=== PATIENT | male | born 1955 | race Caucasian/White ===

== ENCOUNTER 2023-03-01 09:04 | Emergency (ER) | payer MEDICARE, SELFPAY ==
--- NOTE | ~2023-03-01 | CT_ITS ---
EXAMINATION: CT abdomen pelvis wo con DATE: 03/01/2023 10:14 INDICATION: Right flank pain, hematuria TECHNIQUE: Computed tomography (CT) of the abdomen and pelvis was performed without intravenous contr ast. Automated exposure control and iterative reconstruction technique were employed. Exam dose: 165 0.39 mGy-cm total exam DLP. COMPARISON: None. FINDINGS: The lung bases are clear of infiltrate or consolidation. Cardiomegaly. No pericardial or pl eural effusion. The gallbladder appears unremarkable. No bile duct or pancreatic duct dilatation. No hepatic, pancrea tic, splenic or adrenal space-occupying mass lesion. Bilateral renal cysts, measuring up to 6.5 cm on the left, 5.2 cm on the right. Approximately 8.5 mm proximal right ureteral calculus with moderate right hydronephrosis. There is py elosinus extravasation as well. No other urinary tract calculus. The urinary bladder is unremarkable. The prostate gland is unremarkable. Normal appendix. Mild colonic diverticulosis; no evidence of diverticulitis. No bowel obstruction, bowel wall thickeni ng, pneumatosis or intraperitoneal free air. There is atherosclerotic calcification but normal caliber of the abdominal aorta. No intraperitoneal or retroperitoneal or pelvic mass lesion or adenopathy or ascites. Bilateral fat-containing inguinal hernias. Degenerative changes of the thoracic and lumbar spine. No suspicious osteolytic or osteoblastic lesio ns are noted. IMPRESSION: Approximately 7 x 8.5 mm proximal right ureteral calculus with moderate right hydronephr osis, pyelosinus extravasation Bilateral renal cysts Diverticulosis of the colon; no evidence of diverticulitis Normal appendix Bilateral fat-containing inguinal hernias Reviewed, dictated and finalized at [facility]. Reviewed, dictated and finalized at location B. IMPRESSION: Approximately 7 x 8.5 mm proximal right ureteral calculus with mod erate right hydronephrosis, pyelosinus extravasation Bilateral renal cysts Diverticulosis of the colon; no evidence of diverticulitis Normal appendix Bilateral fat-containing inguinal hernias
[2023-03-01 09:05] VITALS: PULSE 74; RESP 20; TEMP 35.6; O2SAT 97
--- NOTE | 2023-03-01 09:14 | ED.MALEGU ---
HPI - Male Genitourinary General Chief complaint: Urogenital-Male Stated complaint: hematuria Time Seen by Provider: 03/01/23 09:14 Source: patient Mode of arrival: ambulatory Limitations: no limitations History of Present Illness HPI Narrative: 67-year-old male with morbid obesity, hypertension, CHF, atrial fibrillation on anticoagulation, chronic hematuria, BPH, negative cystoscopy many years ago, presents to the ER with -- hematuria- passing red tinged urine without any clots. -- right flank pain. No radiation of the pain. the patient is taking Bactrim DS for the past 3 days. No fever or chills. MD Complaint: dysuria and other ( Hematuria) Onset (ago): day(s) ( 2 days) Duration: intermittent Location: right flank Severity: mild Quality: aching Relieving factors: none Exacerbating factors: none Associated symptoms: Reports denies other symptoms Related Data Home Medications Medication Instructions Recorded Confirmed amlodipine 10 mg tablet 10 mg PO DAILY 03/01/23 03/01/23 carvedilol 25 mg tablet 25 mg PO BID 03/01/23 03/01/23 digoxin 125 mcg (0.125 mg) tablet 125 mcg PO DAILY 03/01/23 03/01/23 finasteride 5 mg tablet 5 mg PO DAILY 03/01/23 03/01/23 lisinopril 20 mg tablet 40 mg PO DAILY 03/01/23 03/01/23 potassium chloride 10 mEq 10 meq PO DAILY 03/01/23 03/01/23 tablet,extended release(part/cryst) (Klor-Con M) rivaroxaban 20 mg tablet (Xarelto) 20 mg PO DAILY 03/01/23 03/01/23 Allergies Allergy/AdvReac Type Severity Reaction Status Date / Time ciprofloxacin [From Cipro] AdvReac Diarrhea Verified 03/01/23 09:51 Review of Systems Review of Systems: All systems reviewed & are unremarkable except as noted in HPI and below Constitutional: Constitutional: Reports as per HPI and Reports no additional constitutional complaints Eyes: Eyes: Reports as per HPI and Reports no additional eye complaints ENT: Reports system reviewed and no additional complaints, except as documented and Reports as per HPI Cardiovascular: Cardiovascular: Reports as per HPI and Reports no additional cardiovascular complaints Respiratory: Respiratory: Reports as per HPI and Reports no additional respiratory complaints Gastrointestinal: Gastrointestinal: Reports as per HPI and Reports no additional gastrointestinal complaints Genitourinary: Genitourinary: Reports hematuria Comments: right flank pain Musculoskeletal: Musculoskeletal: Reports no additional musculoskeletal complaints Integumentary/Breasts: Skin/Breast: Reports system reviewed and no additional complaints, except as docu Neurologic: Reports system reviewed and no additional complaints, except as documented and Reports as per HPI Psychiatric: Psychiatric: Reports no additional psychiatric complaints and Reports as per HPI Endocrine: Endocrine: Reports no additional endocrine complaints and Reports as per HPI Hematologic/Lymphatic: Hematologic/Lymphatic: Reports no additional hematologic/lymphatic complaints and Reports as per HPI Allergic/Immunologic: Allergic/Immunologic: Reports no additional allergic/immunologic complaints and Reports as per HPI PMFSH Past Medical History Medical History (Updated 03/01/23 @ 10:37 by Donavon Hughes MD) Afib BPH (benign prostatic hyperplasia) CHF (congestive heart failure) Hypertension Normal cystoscopy Obesity Exam Const: General: no acute distress Nutritional Appearance: obese Limitations: no limitations HENMT: Head: normal to inspection Ears: TM's normal bilaterally Face/Nose/Sinus: Normal external nose present Face and sinus: normal facial exam Mouth: Yes Normal oral and palatal mucosa present Throat: posterior oropharynx normal Eyes: Conjunctivae: conjunctivae normal Pupils: Equal, round and reactive pupils present EOM: EOMs intact bilaterally Direct Ophthalmoscopy: no photophobia Neck: Neck: normal visual inspection, no lymphadenopathy and no meningeal signs Chest: Chest palpation &
[2023-03-01 09:41] LABS: Appearance Urine Slightly Cloudy (Clear); Bilirubin Urine Negative (Negative); Blood Urine 3+ (Negative); Glucose Urine UA Negative (Negative); Ketones Urine Trace (Negative); Leukocyte Esterase Ur Trace LEU/UL (Negative); Nitrate Urine Negative (Negative); Protein Urine 2+ (Negative)
[2023-03-01 09:47] LABS: Basophils Absolute Auto 0.04 K/mm3 (0.00-0.10); Basophils Percent Auto 0.4 % (0.0-1.0); Eosinophils Absolute Auto 0.02 K/mm3 (0.02-0.50); Eosinophils Percent Auto 0.2 % (1.0-6.0); Hematocrit 47.1 % (37.0-46.0); Immature Granulocyte Absolute 0.06 K/mm3 (0.00-0.00); Immature Granulocyte Percent A 0.5 % (0.0-0.0); Lymphocytes Absolute Auto 0.78 K/mm3 (1.10-4.50); Lymphocytes Percent Auto 7.1 % (18.0-42.0); Mean Corpuscular HGB Conc 31.8 g/dL (32.0-36.0); Mean Corpuscular Hemoglobin 27.8 pg (27.0-31.0); Mean Corpuscular Volume 87.2 fL (78.0-102.0); Mean Platelet Volume 9.7 fl (8.7-11.0); Monocytes Absolute Auto 0.66 K/mm3 (0.10-0.90); Neutrophils Absolute Auto 9.4 K/mm3 (1.7-7.2); Neutrophils Percent Auto 85.8 % (50.0-70.0); Platelet Count Result 272 K/mm3 (150-420); Red Cell Distribution Width 14.2 % (11.6-14.4)
[2023-03-01 09:47] LABS: Add Urine Microscopic? YES; Bacteria Urine 1+ /hpf; Color Urine Amber (Yellow); RBC Urine >75 /hpf (0-2); Squamous Epithelial Cell Urine Occasional /hpf (Few)
[2023-03-01 10:06] LABS: Alanine Aminotransferase 19 U/L (16-63); Alkaline Phosphatase 80 U/L (46-116); Anion Gap 9 mmol/L (8-16); Aspartate Amino Transferase 16 U/L (15-37); Bilirubin,Total 0.6 mg/dL (0.00-1.00); Blood Urea Nitrogen 14 mg/dL (7-18); Carbon Dioxide 26 mmol/L (21-32); Chloride 102 mmol/L (98-108); Creatine Kinase 43 U/L (39-308); Estimated CRCL calculation 83 ml/min; Estimated Glomerular Filt Rate 58; Glucose 144 mg/dL (70-99); Osmolality Calculated 287 mOsm/kg (285-295); Potassium 4.3 mmol/L (3.5-5.1); Sodium 137 mmol/L (136-145); Total Protein 7.4 g/dL (6.4-8.2)
[2023-03-01 10:07] LABS: Lipase 14 U/L (16-77)
[2023-03-01 10:11] LABS: Calcium 9.6 mg/dL (8.5-10.1)
[2023-03-01] MEDS: HYDROcodone/acetaminophen (*CRX) 5-325 MG TABLET 1 TAB PO (11:02)
[2023-03-01 11:03] VITALS: BP 176/95; PULSE 89; RESP 20; TEMP 37.1; O2SAT 94
== END 2023-03-01 11:07 | disposition home or self-care (01) ==
PROVIDERS: Emergency Provider Internal Medicine Critical Care Medicine; PCP Internal Medicine
DX: N20.0 Calculus of kidney (principal); R31.0 Gross hematuria; I11.0 Hypertensive heart disease with heart failure; I50.9 Heart failure, unspecified; I48.91 Unspecified atrial fibrillation; N40.0 Benign prostatic hyperplasia without lower urinary tract symptoms; Z79.01 Long term (current) use of anticoagulants; E66.01 Morbid (severe) obesity due to excess calories; Z68.44 Body mass index [BMI] 60.0-69.9, adult
CPT/HCPCS: 36415; 74176; 80053; 81001; 82550; 83690; 85025; 99284; A9270

== ENCOUNTER 2023-03-08 10:23 | Outpatient (CLI) | payer MEDICARE, SELFPAY ==
--- NOTE | ~2023-03-08 | XR_ITS ---
EXAMINATION: XR abdomen/kub 1V DATE: 03/08/2023 10:44 INDICATION: Ureteral stone. Right flank pain. TECHNIQUE: A supine view of the abdomen on 2 radiographs was obtained. COMPARISON: CT abdomen and pelvis 03/01/2023 FINDINGS: There are no dilated loops of bowel. There is a 9 mm stone in proximal right ureter. IMPRESSION: 1. 9 mm stone in proximal right ureter. Reviewed, dictated and finalized at location A.
== END 2023-03-08 10:24 | disposition home or self-care (01) ==
PROVIDERS: PCP Internal Medicine; Visit Provider Nurse Practitioner Adult Health
DX: N20.1 Calculus of ureter (principal)
CPT/HCPCS: 74018

== ENCOUNTER 2023-03-09 08:36 | Outpatient (CLI) | payer MEDICARE, SELFPAY ==
--- NOTE | 2023-03-09 08:55 | ECG_ITS ---
Measurements Intervals [place] Rate: 57 P: AL: 0 QRS: -33 QRSD: 116 T: -3 QT: 401 QTc: 392 Interpretive Statements ATRIAL FIBRILLATION WITH SLOW VENTRICULAR RESPONSE LEFT AXIS DEVIATION [QRS AXIS < -30] MODERATE INTRAVENTRICULAR CONDUCTION DELAY [110+ ms QRS DURATION] ST DEPRESSION, CONSIDER SUBENDOCARDIAL INJURY [0.1+ mV ST DEPRESSION] ABNORMAL ECG NO PREVIOUS ECG AVAILABLE FOR COMPARISON Electronically Signed On 03-09-2023 13:34:39 CDT by Gian Perera M.D.
[2023-03-09 09:10] LABS: Appearance Urine Clear (Clear); Bilirubin Urine Negative (Negative); Blood Urine 1+ (Negative); Color Urine Light Yellow (Yellow); Glucose Urine UA Negative (Negative); INR 1.1; Ketones Urine Negative (Negative); Leukocyte Esterase Ur Negative LEU/UL (Negative); Nitrate Urine Negative (Negative); Partial Thromboplastin Time 33.2 SEC (23.90-30.70); Protein Urine Negative (Negative); Prothrombin Time 12.1 Seconds (9.50-12.10); Urobilinogen Urine 0.2 mg/dL (0.2-1.0)
[2023-03-09 09:20] LABS: Add Urine Microscopic? YES; Bacteria Urine Rare /hpf; RBC Urine 0-2 /hpf (0-2); WBC Urine None seen /hpf (0-3)
[2023-03-09 09:33] LABS: Digoxin 0.6 ng/mL (0.9-2.0)
== END 2023-03-09 08:37 | disposition home or self-care (01) ==
LOC: CHSLAB 08:40
PROVIDERS: Anesthesiology; PCP Internal Medicine; Visit Provider Urology
DX: Z51.81 Encounter for therapeutic drug level monitoring (principal); N20.0 Calculus of kidney; I10 Essential (primary) hypertension; I50.9 Heart failure, unspecified; I48.91 Unspecified atrial fibrillation; R94.31 Abnormal electrocardiogram [ECG] [EKG]
CPT/HCPCS: 36415; 80162; 81001; 85610; 85730; 93005

== ENCOUNTER 2023-03-10 03:08 | Day surgery (SDC) | payer MEDICARE, SELFPAY ==
[2023-03-08 15:41] VITALS: BMI 55.5
--- NOTE | 2023-03-08 15:45 | PC.NURSE ---
Report to the Outpatient Waiting Room, entrance under the green pavilion located off [facility], at time __1200 on date __03/10/23 . Planned Procedure Time: __2 PM . Time changes happen often and if your time is changed the preop area will call you the afternoon before. - You and your visitor will be asked to self-screen and do not enter if you have any COVID symptoms. - A mask is optional within the hospital at this time. Patients may have clear liquids (water, carbonated beverages, clear teas, apple juice) until 3 hours prior to surgery (1100 AM) with a maximum of 20 ounces. - No food from midnight until time of surgery Take the following medications with a SIP of water the morning of surgery: _CARVEDILOL, DIGOXIN & PAIN PILL IF NEEDED_ DO NOT STOP ANY OF YOUR OTHER PRESCRIPTION MEDICATIONS PRIOR TO SURGERY ?EXCEPT THE FOLLOWING Medications to discontinue _PT STATES LAST DOSE OF XARELTO WAS 03/06/23_ Date to take last dose Please no make-up, nail malaysian, hairspray, perfume, deodorant, or body powder the day of surgery. No jewelry (including any body piercings) or valuables the day of surgery, leave them at home. Please take a shower or bath the night before, or the morning of, surgery with an antibacterial soap. Wear comfortable, loose fitting clothing. - Jewelry must be removed prior to entering the operating room. Rings and piercings that are not removed may be cut off. - The hospital will not accept responsibility for valuables. - Please leave all valuables, including medications, at home the day of surgery. If you are going home after surgery, a licensed xm1 tank driver must drive you home. - NO public transportation without another adult if you receive anesthesia. - We recommend that an adult stay with you for 24 hours following discharge. - We also recommend that you do not drive, make important decision, drink alcoholic beverages, or take any drugs that were not prescribed by your health care provider for at least 24 hours after your discharge time. Follow any additional instructions given to you from your surgeon. If you or anyone in your household have experienced Covid symptoms in the past week, please notify your surgeon or the nurse liaison at the phone number below for possible testing. Telephone instructions given to _PATIENT_and asked if any additional questions and then verbalized understanding. Patient advised to call surgeon office or pre surgery nurse liaison [phone] if any additional questions.
--- NOTE | ~2023-03-10 | XR_ITS ---
EXAMINATION: XR retrograde pyelo w/stent RT DATE: 03/10/2023 14:03 INDICATION: Ureteral stone. TECHNIQUE: 5 intraoperative fluoroscopic views of the abdomen and pelvis were obtained. I was not pre sent. Fluoroscopy exposure time was 72 seconds. COMPARISON: Abdomen radiographs 03/08/2023 FINDINGS: The right-sided retrograde pyelogram demonstrates hydronephrosis. The final image demonstra rhiannon a right internal ureteral stent in expected position. IMPRESSION: 1. Right internal ureteral stent in expected position. Reviewed, dictated and finalized at location A.
--- NOTE | 2023-03-10 07:00 | WPDHPUPDATE1 ---
History and Physical Update Update Date/Time: 03/10/23 07:00 History and Physical has been reviewed, including an updated exam of the patient. There are NO changes in the patient's condition. Risks, benefits, and alternatives have been discussed and questions answered. Patient agrees to proceed with procedure.
[2023-03-10 11:49] VITALS: BMI 53.1
--- NOTE | 2023-03-10 12:27 | WPDANESEPPF ---
Anes - Initial Pre Proc Eval Procedure: Operation Date: 03/10/23 14:00 Proposed Procedures p Cystoscopy, Right Ureteroscopy, Possible Right Retrograde Pyelogram, Possible Right Stone Extraction, Possible Right Stent Placement, Possible Holmium Laser Procedure - Willie Jaquez MD Date/Time: 03/10/23 12:27 Surgeon: Willie Jaquez MD Pre Op Diagnosis: Right Ureteral Stone Patient Data Age: 67 Gender: M Height: 1.85 m Weight: 190.9 kg Allergies Allergy/AdvReac Type Severity Reaction Status Date / Time ciprofloxacin [From Cipro] AdvReac Diarrhea Verified 03/10/23 12:26 Home Medications Medication Instructions Recorded Confirmed Type amlodipine 10 mg tablet 10 mg PO DAILY 03/01/23 03/10/23 History carvedilol 25 mg tablet 25 mg PO BID 03/01/23 03/10/23 History digoxin 125 mcg (0.125 mg) tablet 125 mcg PO DAILY 03/01/23 03/10/23 History finasteride 5 mg tablet 5 mg PO DAILY 03/01/23 03/10/23 History hydrocodone 5 mg-acetaminophen 325 1 tablet PO Q6H PRN pain #14 tabs 03/01/23 03/10/23 Rx mg tablet lisinopril 20 mg tablet 40 mg PO DAILY 03/01/23 03/10/23 History potassium chloride 10 mEq 10 meq PO DAILY 03/01/23 03/10/23 History tablet,extended release(part/cryst) (Klor-Con M) rivaroxaban 20 mg tablet (Xarelto) 20 mg PO DAILY 03/01/23 03/10/23 History sulfamethoxazole 800 1 tablet PO Q12H #14 tabs 03/01/23 03/10/23 Rx mg-trimethoprim 160 mg tablet (Bactrim DS) tamsulosin 0.4 mg capsule (Flomax) 0.4 mg PO HS #10 caps 03/01/23 03/10/23 Rx Patient hx anesthesia problems: none Family hx anesthesia problems: none Results Review: All pre-operative results and documents have been reviewed as part of the pre-operative evaluation. [facility] Past Medical History Medical History Afib BPH (benign prostatic hyperplasia) CHF (congestive heart failure) Hypertension Normal cystoscopy Obesity Social History Social History Smoking status: Never smoker Second hand tobacco smoke exposure: No Alcohol intake: never Substance use: never Substance use type: does not use Living arrangements: with family Spiritual care concerns: No Anes - Eval Final PreProcedure Day of Procedure 03/10/23 12:27 Patient weight: morbidly obese Heart: regular rate and rhythm Lungs: clear to auscultation Airway: Mallampati scale class II Neurological: alert and oriented Last oral intake: >/= 8 hours ASA classification: III Emergent: no Anesthetic plan: proceed Anesthesia type and monitoring: general LMA and standard monitoring Results Review: All pre-operative results and documents have been reviewed as part of the pre-operative evaluation. Informed Consent: The patient's anesthetic plan and its attendant risks and benefits were discussed with the patient/family/POA. Questions were solicited and answers provided to the satisfaction of the patient/family/POA.
[2023-03-10] MEDS: LACTATED RINGERS 1,000 ML 30 ML IV CONT (13:07)
[2023-03-10] MEDS: ceFAZolin 3 GM/D5W 100 ML 100 ML IVPB (13:09)
--- NOTE | 2023-03-10 13:58 | W.PM.PROC2 ---
Procedure Note - Detailed Date of Procedure 03/10/23 Pre-op Diagnosis Right Ureteral Stone Post-op Diagnosis Same Procedure Performed Cystoscopy, urethral dilatation, right retrograde pyelography, right ureteroscopy with laser lithotripsy and stone extraction, right ureteral stent placement Surgeon Willie Jaquez MD Anesthesia General Description of Procedure Patient is brought to the operative suite was prepped draped in routine sterile fashion in dorsal lithotomy position after the uneventful induction of a general LMA anesthetic. Cystoscopy is undertaken with a 19 F cystoscope. I was only able to pass the cystoscope after I dilated his external urethral meatus from 14 F to 24 F. Remainder the urethra was normal. He has a moderate lateral lobe hyperplasia of the prostate without a significant median lobe. Bladder is minimally trabeculated. There was no intravesical foreign body neoplasm. He has a single orthotopic ureteral orifice bilaterally. a 0.035 in glidewire was advanced into the right renal pelvis. Distal ureter was dilated with an 8 F 10 F dilator and a 11/13 F access sheath this placed with a safety wire in place. Ureteroscopy was undertaken with the 7.5 F flexible ureteral scope. The 6 mm right mid ureteral stone is identified. With irrigation, prior to commencing laser ablation, it washes into an upper pole calyx. Using a 272 micron holmium laser we dusted the stone into particles all less than 2 mm. Any sizable fragments were removed with a 1.9 F disposable stone basket. Retrograde pyelogram was obtained to confirm appropriate positioning of a 4.8 F variable length ureteral stent. Pathology Yes Complications No immediate complications Condition Stable Disposition PACU
[2023-03-10 14:00] VITALS: BP 115/63; PULSE 60; RESP 17; TEMP 36.1; O2SAT 92
[2023-03-10 14:15] VITALS: BP 120/69; PULSE 54; RESP 16; O2SAT 94
[2023-03-10 14:27] VITALS: BP 129/65; PULSE 52; RESP 14; O2SAT 94
[2023-03-10 14:30] VITALS: BP 135/77; PULSE 66; RESP 14
[2023-03-10 14:55] VITALS: BP 134/80; PULSE 46; RESP 14
== END 2023-03-10 15:18 | disposition home or self-care (01) ==
PROVIDERS: PCP Internal Medicine; Visit Provider Urology
PROC: (CPT 52352; principal; 2023-03-10 14:00)
DX: N20.1 Calculus of ureter (principal); I48.91 Unspecified atrial fibrillation; I11.0 Hypertensive heart disease with heart failure; I50.9 Heart failure, unspecified; N40.0 Benign prostatic hyperplasia without lower urinary tract symptoms; E66.01 Morbid (severe) obesity due to excess calories; Z68.43 Body mass index [BMI] 50.0-59.9, adult; Z79.01 Long term (current) use of anticoagulants
CPT/HCPCS: 52356; 74420; 82365; 88300; C1769; C1894; C2617; J0690; J1100; J2405; J2704; J7120; Q9966

== ENCOUNTER 2023-03-29 09:39 | Outpatient (CLI) | payer MEDICARE, SELFPAY ==
[2023-03-29 09:58] LABS: Appearance Urine Clear (Clear); Basophils Absolute Auto 0.05 K/mm3 (0.00-0.10); Basophils Percent Auto 0.5 % (0.0-1.0); Bilirubin Urine Negative (Negative); Blood Urine 1+ (Negative); Color Urine Light Yellow (Yellow); Eosinophils Absolute Auto 0.19 K/mm3 (0.02-0.50); Glucose Urine UA Negative (Negative); Hematocrit 45.9 % (37.0-46.0); Hemoglobin 14.6 g/dL (12.4-15.3); Immature Granulocyte Absolute 0.04 K/mm3 (0.00-0.00); Immature Granulocyte Percent A 0.4 % (0.0-0.0); Ketones Urine Negative (Negative); Leukocyte Esterase Ur Negative (Negative); Lymphocytes Absolute Auto 2.05 K/mm3 (1.10-4.50); Lymphocytes Percent Auto 21.3 % (18.0-42.0); Mean Corpuscular HGB Conc 31.8 g/dL (32.0-36.0); Mean Corpuscular Hemoglobin 28.2 pg (27.0-31.0); Mean Corpuscular Volume 88.6 fL (78.0-102.0); Mean Platelet Volume 9.5 fl (8.7-11.0); Monocytes Absolute Auto 0.88 K/mm3 (0.10-0.90); Monocytes Percent Auto 9.1 % (2.0-11.0); Neutrophils Absolute Auto 6.4 K/mm3 (1.7-7.2); Neutrophils Percent Auto 66.7 % (50.0-70.0); Nitrate Urine Negative (Negative); Platelet Count Result 279 K/mm3 (150-420); Protein Urine Negative (Negative); Red Blood Count 5.18 M/mm3 (4.70-6.10); Red Cell Distribution Width 13.8 % (11.6-14.4); Urobilinogen Urine 0.2 mg/dL (0.2-1.0); White Blood Count 9.6 K/mm3 (4.8-10.8)
[2023-03-29 10:03] LABS: Add Urine Microscopic? YES; Bacteria Urine Trace /hpf; Squamous Epithelial Cell Urine Few /hpf (Few); WBC Urine None seen /hpf (0-3)
[2023-03-29 10:58] LABS: Hemoglobin A1C 5.9 % (<5.7)
[2023-03-29 11:39] LABS: Alanine Aminotransferase 25 U/L (16-63); Albumin Level 2.8 g/dL (3.4-5.0); Alkaline Phosphatase 97 U/L (46-116); Anion Gap 8 mmol/L (8-16); Aspartate Amino Transferase < 10 U/L (15-37); Bilirubin,Total 0.5 mg/dL (0.00-1.00); Blood Urea Nitrogen 13 mg/dL (7-18); Calcium 9.2 mg/dL (8.5-10.1); Carbon Dioxide 30 mmol/L (21-32); Chloride 105 mmol/L (98-108); Cholesterol 155 mg/dL (0-200); Creatine Kinase 42 U/L (39-308); Estimated Glomerular Filt Rate > 60; Ferritin 172 ng/mL (26-388); Free T3 2.75 pg/mL (2.18-3.98); Free T4 Free Thyroxine 1.11 ng/dL (0.76-1.46); Glucose 101 mg/dL (70-99); HDL Direct 44 mg/dL (40-60); Iron 50 ug/dL (65-175); LDL Cholesterol Calculated 93 mg/dL (<130); NT Pro B Type Natriuretic Pept 1236 pg/mL (0-125); Osmolality Calculated 296 mOsm/kg (285-295); Potassium 4.2 mmol/L (3.5-5.1); Sodium 143 mmol/L (136-145); Thyroid Stimulating Hormone 1.52 uIU/mL (0.36-3.74); Total Protein 6.8 g/dL (6.4-8.2); Triglycerides 89 mg/dL (0-150); Vitamin B12 495 pg/mL (193-986)
== END 2023-03-29 09:40 | disposition home or self-care (01) ==
LOC: CHSLAB 09:42
PROVIDERS: PCP Internal Medicine; Visit Provider Internal Medicine
DX: I10 Essential (primary) hypertension (principal); E78.2 Mixed hyperlipidemia; R82.81 Pyuria; I48.20 Chronic atrial fibrillation, unspecified; R31.29 Other microscopic hematuria; E79.0 Hyperuricemia without signs of inflammatory arthritis and tophaceous disease; R73.01 Impaired fasting glucose; D64.9 Anemia, unspecified; I50.9 Heart failure, unspecified
CPT/HCPCS: 36415; 80053; 80061; 81001; 82550; 82607; 82728; 83036; 83540; 83880; 84439; 84443; 84481; 84550; 85025; 87086; 87088

== ENCOUNTER 2023-06-22 02:27 | Day surgery (SDC) | payer MEDICARE, SELFPAY ==
[2023-06-06 14:15] VITALS: BMI 52.0
--- NOTE | 2023-06-07 08:29 | PC.NURSE ---
PT STATES OFFICE Spoke with _HIM__regarding medication _XARELTO___. Pt. verbalizes understanding that the last dose of _XARELTO taken on ____06/18/2023 and the Endoscopist will instruct them when to restart after the procedure.
--- NOTE | 2023-06-20 10:53 | SUR.PREOP ---
Patient called regarding upcoming procedure. Reviewed preop instructions, appointment times, and procedure prep.
[2023-06-22 07:46] VITALS: BP 157/107; PULSE 60; RESP 20; TEMP 36.1; O2SAT 100
[2023-06-22] MEDS: LACTATED RINGERS 1,000 ML 150 ML IV CONT (08:00)
--- NOTE | 2023-06-22 09:19 | P.PNAN_ITS ---
Anes - Initial Pre Proc Eval Procedure: Operation Date: 06/22/23 09:00 Proposed Procedures p Esophagogastroduodenoscopy & Screening Colonoscopy - Sourav Tobar DO Date/Time: 06/22/23 09:19 Surgeon: Sourav Tobar DO Pre Op Diagnosis: neoplasm screening, GERD Patient Data Age: 67 Gender: M Height: 1.85 m Weight: 175.2 kg Last Vital Signs Temp 97 F L 06/22/23 07:46 Pulse 60 06/22/23 07:46 Resp 20 06/22/23 07:46 BP 157/107 H 06/22/23 07:46 Pulse Ox 100 06/22/23 07:46 O2 Del Method Room Air 06/22/23 07:46 Allergies Allergy/AdvReac Type Severity Reaction Status Date / Time ciprofloxacin [From Cipro] AdvReac Diarrhea Verified 06/22/23 07:44 Home Medications Medication Instructions Recorded Confirmed Type amlodipine 10 mg tablet 10 mg PO DAILY 03/01/23 06/06/23 History carvedilol 25 mg tablet 25 mg PO BID 03/01/23 06/06/23 History digoxin 125 mcg (0.125 mg) tablet 125 mcg PO DAILY 03/01/23 06/06/23 History finasteride 5 mg tablet 5 mg PO DAILY 03/01/23 06/06/23 History lisinopril 20 mg tablet 40 mg PO DAILY 03/01/23 06/06/23 History potassium chloride 10 mEq 10 meq PO DAILY 03/01/23 06/06/23 History tablet,extended release(part/cryst) (Klor-Con M) rivaroxaban 20 mg tablet (Xarelto) 20 mg PO DAILY 03/01/23 06/22/23 History tamsulosin 0.4 mg capsule (Flomax) 0.4 mg PO HS #10 caps 03/01/23 06/06/23 Rx Patient hx anesthesia problems: none Family hx anesthesia problems: none Results Review: All pre-operative results and documents have been reviewed as part of the pre- operative evaluation. [facility] Past Medical History Medical History Afib BPH (benign prostatic hyperplasia) CHF (congestive heart failure) Hypertension Normal cystoscopy Obesity Social History Social History Smoking status: Never smoker Second hand tobacco smoke exposure: No Alcohol intake: never Substance use: never Substance use type: does not use Living arrangements: with family Spiritual care concerns: No Anes - Eval Final PreProcedure Day of Procedure 06/22/23 09:19 Patient weight: super morbidly obese Heart: regular rate and rhythm Lungs: clear to auscultation Airway: Mallampati scale class II Neurological: alert and oriented Last oral intake: >/= 8 hours ASA classification: IV Emergent: no Anesthetic plan: proceed Anesthesia type and monitoring: general Results Review: All pre-operative results and documents have been reviewed as part of the pre- operative evaluation. Informed Consent: The patient's anesthetic plan and its attendant risks and benefits were discussed with the patient/family/POA. Questions were solicited and answers provided to the satisfaction of the patient/family/POA.
--- NOTE | 2023-06-22 09:25 | PM.IMHP ---
H&P: HPI History of Present Illness Date/Time: 06/22/23 09:25 Chief Complaint: iron deficiency anemia Narrative: this is a 67-year-old man who presents for colonoscopy. He has never had a colonoscopy before. He denies any hematochezia or melena. Denies family history of colon cancer. He was noted to have low iron levels and is iron supplement. He denies any acid reflux or heartburn. He is not on any antacids. Review of Systems Review of Systems: All systems reviewed & are unremarkable except as noted in HPI and below Constitutional: Constitutional: Denies chills, Denies fever(s), Denies headache(s) and Denies weight loss Eyes: Eyes: Denies change in vision ENT: Denies dizziness, Denies headache(s), Denies neck mass and Denies throat swelling Cardiovascular: Cardiovascular: Denies chest pain, Denies lightheadedness and Denies dyspnea Respiratory: Respiratory: Denies cough, Denies dyspnea and Denies wheezing Gastrointestinal: Gastrointestinal: Denies abdominal pain, Denies change in bowel habits, Denies nausea and Denies vomiting Genitourinary: Genitourinary: Denies hematuria and Denies dysuria Musculoskeletal: Musculoskeletal: Reports as per HPI Integumentary/Breasts: Skin/Breast: Reports as per HPI Neurologic: Denies dizziness and Denies headache(s) Allergic/Immunologic: Allergic/Immunologic: Denies throat swelling and Denies wheezing PMFSH Past Medical History Medical History Afib BPH (benign prostatic hyperplasia) CHF (congestive heart failure) Hypertension Normal cystoscopy Obesity Social History Social History Smoking status: Never smoker Second hand tobacco smoke exposure: No Alcohol intake: never Substance use: never Substance use type: does not use Living arrangements: with family Spiritual care concerns: No Meds Home Medications and Allergies Home Medications Medication Instructions Recorded Confirmed Type amlodipine 10 mg tablet 10 mg PO DAILY 03/01/23 06/06/23 History carvedilol 25 mg tablet 25 mg PO BID 03/01/23 06/06/23 History digoxin 125 mcg (0.125 mg) tablet 125 mcg PO DAILY 03/01/23 06/06/23 History finasteride 5 mg tablet 5 mg PO DAILY 03/01/23 06/06/23 History lisinopril 20 mg tablet 40 mg PO DAILY 03/01/23 06/06/23 History potassium chloride 10 mEq 10 meq PO DAILY 03/01/23 06/06/23 History tablet,extended release(part/cryst) (Klor-Con M) rivaroxaban 20 mg tablet (Xarelto) 20 mg PO DAILY 03/01/23 06/22/23 History tamsulosin 0.4 mg capsule (Flomax) 0.4 mg PO HS #10 caps 03/01/23 06/06/23 Rx Allergies Allergy/AdvReac Type Severity Reaction Status Date / Time ciprofloxacin [From Cipro] AdvReac Diarrhea Verified 06/22/23 07:44 Vital Signs Vital Signs - 24 hr 06/22/23 07:46 Temperature 36.1 C L Pulse Rate 60 Respiratory Rate 20 Blood Pressure 157/107 H Pulse Oximetry 100 Oxygen Delivery Room Air Exam Const: General: no acute distress and alert Orientation/consciousness: patient oriented x3 HENMT: Head: normocephalic and atraumatic Ears: hearing grossly normal bilaterally Face/Nose/Sinus: Normal nares present Mouth: Yes Normal oral and palatal mucosa present Eyes: Periorbital: periorbital findings normal Sclera: sclerae normal EOM: EOMs intact bilaterally Neck: Neck: normal visual inspection, no lymphadenopathy and trachea midline Chest: Chest palpation & inspection: normal inspection of the chest Resp: Effort & Inspection: normal respiratory effort Auscultation: clear to auscultation bilaterally Cardio: Jugular venous distension: no JVD Rate: regular rate Rhythm: regular rhythm Heart sounds: S1 normal heart sound present and S2 normal heart sound present Peripheral pulses: Peripheral pulses 2+ throughout GI: Inspection: normal to inspection GI Palp: Yes Soft to palpation, No Tenderness to palpation present (G
--- NOTE | 2023-06-22 09:54 | SUR.OPER ---
EGD ended at 946, Colon began at 952
[2023-06-22 10:21] VITALS: BP 110/70; PULSE 62; RESP 23; O2SAT 95
[2023-06-22 10:31] VITALS: BP 126/80; PULSE 65; RESP 17; O2SAT 97
[2023-06-22 10:41] VITALS: BP 141/84; PULSE 63; RESP 16; O2SAT 96
== END 2023-06-22 11:05 | disposition home or self-care (01) ==
PROVIDERS: PCP Internal Medicine; Visit Provider Surgery
PROC: 0DJ08ZZ Inspection of Upper Intestinal Tract, Via Natural or Artificial Opening Endoscopic (ICD-10-PCS; CPT 43235; principal; 2023-06-22 09:00)
DX: D50.9 Iron deficiency anemia, unspecified (principal); K29.50 Unspecified chronic gastritis without bleeding; D12.0 Benign neoplasm of cecum; D12.5 Benign neoplasm of sigmoid colon; D12.8 Benign neoplasm of rectum; I48.91 Unspecified atrial fibrillation; I11.0 Hypertensive heart disease with heart failure; I50.9 Heart failure, unspecified; N40.0 Benign prostatic hyperplasia without lower urinary tract symptoms; Z79.01 Long term (current) use of anticoagulants; E66.01 Morbid (severe) obesity due to excess calories; Z68.43 Body mass index [BMI] 50.0-59.9, adult
CPT/HCPCS: 45385; 45381; 43239; 87081; 88305; J2001; J2405; J2704; J3010; J7120

== ENCOUNTER 2024-03-11 14:42 | Outpatient (CLI) | payer MEDICARE, SELFPAY ==
--- NOTE | ~2024-03-11 | XR_ITS ---
EXAMINATION: XR abdomen/kub 1V DATE: 03/11/2024 15:11 INDICATION: Kidney stone. TECHNIQUE: A supine view of the abdomen on 3 radiographs was obtained. COMPARISON: CT abdomen and pelvis 03/01/2023 FINDINGS: There are no dilated loops of bowel. There is no visible urolithiasis. IMPRESSION: 1. No visible urolithiasis. Reviewed, dictated and finalized at location A. IMPRESSION: 1. No visible urolithiasis.
== END 2024-03-11 14:43 | disposition home or self-care (01) ==
LOC: ANHIMG 14:50
PROVIDERS: PCP Internal Medicine; Visit Provider Urology
DX: N20.1 Calculus of ureter (principal)
CPT/HCPCS: 74018

== ENCOUNTER 2024-03-21 02:41 | Day surgery (SDC) | payer MEDICARE, SELFPAY ==
[2024-03-13 10:38] VITALS: BMI 54.1
[2024-03-21 10:03] VITALS: BP 138/91; PULSE 58; RESP 20; TEMP 36.3; O2SAT 96
[2024-03-21] MEDS: LACTATED RINGERS 1,000 ML 150 ML IV CONT (10:10)
--- NOTE | 2024-03-21 10:29 | PM.IMHP ---
H&P: HPI History of Present Illness Date/Time: 03/21/24 10:29 Chief Complaint: history of colon polyps Narrative: this is a 68-year-old man who presents for colonoscopy. He just had a colonoscopy 9 months ago and was found to have a large 3 cm rectal polyp that was removed in piecemeal fashion. Due to the size and piecemeal fashion of excision, repeat colonoscopy was recommended 6 months. He has had no changes since last colonoscopy. Review of Systems Review of Systems: All systems reviewed & are unremarkable except as noted in HPI and below Constitutional: Constitutional: Denies chills, Denies fever(s), Denies headache(s) and Denies weight loss Eyes: Eyes: Denies change in vision ENT: Denies dizziness, Denies headache(s), Denies neck mass and Denies throat swelling Cardiovascular: Cardiovascular: Denies chest pain, Denies lightheadedness and Denies dyspnea Respiratory: Respiratory: Denies cough, Denies dyspnea and Denies wheezing Gastrointestinal: Gastrointestinal: Denies abdominal pain, Denies change in bowel habits, Denies nausea and Denies vomiting Genitourinary: Genitourinary: Denies hematuria and Denies dysuria Musculoskeletal: Musculoskeletal: Reports as per HPI Integumentary/Breasts: Skin/Breast: Reports as per HPI Neurologic: Denies dizziness and Denies headache(s) Allergic/Immunologic: Allergic/Immunologic: Denies throat swelling and Denies wheezing PMFSH Past Medical History Medical History Afib BPH (benign prostatic hyperplasia) CHF (congestive heart failure) Hypertension Normal cystoscopy Obesity Social History Social History Smoking status: Never smoker Second hand tobacco smoke exposure: No Alcohol intake: never Substance use: never Substance use type: does not use Living arrangements: with family Spiritual care concerns: No Meds Home Medications and Allergies Home Medications Medication Instructions Recorded Confirmed Type amlodipine 10 mg tablet 10 mg PO DAILY 03/01/23 03/21/24 History carvedilol 25 mg tablet 25 mg PO BID 03/01/23 03/21/24 History digoxin 125 mcg (0.125 mg) tablet 125 mcg PO DAILY 03/01/23 03/21/24 History finasteride 5 mg tablet 5 mg PO DAILY 03/01/23 03/21/24 History lisinopril 20 mg tablet 40 mg PO DAILY 03/01/23 03/21/24 History potassium chloride 10 mEq 10 meq PO DAILY 03/01/23 03/21/24 History tablet,extended release(part/cryst) (Klor-Con M) rivaroxaban 20 mg tablet (Xarelto) 20 mg PO DAILY 03/01/23 03/21/24 History tamsulosin 0.4 mg capsule (Flomax) 0.4 mg PO HS #10 caps 03/01/23 03/21/24 Rx omeprazole 20 mg capsule,delayed 20 mg PO DAILY #30 caps 06/22/23 03/21/24 Rx release Allergies Allergy/AdvReac Type Severity Reaction Status Date / Time ciprofloxacin [From Cipro] AdvReac Diarrhea Verified 03/21/24 10:00 Vital Signs Vital Signs - 24 hr 03/21/24 10:03 Temperature 97.4 F L Pulse Rate 58 L Respiratory Rate 20 Blood Pressure 138/91 H Pulse Oximetry 96 Oxygen Delivery Room Air Exam Const: General: no acute distress and alert Orientation/consciousness: patient oriented x3 HENMT: Head: normocephalic and atraumatic Ears: hearing grossly normal bilaterally Face/Nose/Sinus: Normal nares present Mouth: Yes Normal oral and palatal mucosa present Eyes: Periorbital: periorbital findings normal Sclera: sclerae normal EOM: EOMs intact bilaterally Neck: Neck: normal visual inspection, no lymphadenopathy and trachea midline Chest: Chest palpation & inspection: normal inspection of the chest Resp: Effort & Inspection: normal respiratory effort Auscultation: clear to auscultation bilaterally Cardio: Jugular venous distension: no JVD Rate: regular rate Rhythm: regular rhythm Heart sounds: S1 normal heart sound present and S2 normal heart sound present Peripheral pulses: Peripheral pulses 2+ throughout GI: Inspection: normal to inspection GI Palp: Yes Soft to palpation, No Tenderness to palpation present (GI), No Guarding due to palpation present (GI) and No Rebound tenderness present Percussion: Yes normal to percussion Auscultation: normal bowel sounds : General: Yes no CVA tenderness Back/Spine/Pelvis: Back: no CVA tenderness Neuro: General: patient oriented x3, no focal motor deficits and CN's II-XI intact bilaterally Cognition (Neuro): normal cognition Speech: normal speech Motor exam (neuro): 5/5 motor strength present throughout Extrem: General: capillary refill normal and no clubbing, cyanosis or edema Assessment and Plan Assessment and plan (1) History of colon polyps: Code(s): Z86.0100 - Personal history of colon polyps, unspecified Status: Acute Assessment and Plan: I have recommended colonoscopy. I have discussed the procedure, risks, benefits, and alternatives. Questions were answered. Patient is agreeable to proceed.
[2024-03-21 11:20] VITALS: BP 156/84; PULSE 54; RESP 22; O2SAT 94
[2024-03-21 11:30] VITALS: BP 153/83; PULSE 61; RESP 19; O2SAT 96
[2024-03-21 11:40] VITALS: BP 160/82; PULSE 60; RESP 18; O2SAT 96
== END 2024-03-21 11:43 | disposition home or self-care (01) ==
PROVIDERS: PCP Internal Medicine; Visit Provider Surgery
PROC: 0DJD8ZZ Inspection of Lower Intestinal Tract, Via Natural or Artificial Opening Endoscopic (ICD-10-PCS; CPT 45378; principal; 2024-03-21 11:30)
DX: Z09 Encounter for follow-up examination after completed treatment for conditions other than malignant neoplasm (principal); I48.91 Unspecified atrial fibrillation; N40.0 Benign prostatic hyperplasia without lower urinary tract symptoms; I11.0 Hypertensive heart disease with heart failure; I50.9 Heart failure, unspecified; Z79.01 Long term (current) use of anticoagulants; Z86.0100 Personal history of colon polyps, unspecified
CPT/HCPCS: 45378; J2003; J2704; J7120

== ENCOUNTER 2025-04-29 10:59 | Outpatient (CLI) | payer MEDICARE, SELFPAY ==
--- NOTE | ~2025-04-29 | XR_ITS ---
Examination: XR chest 2V Clinical History: COUGHING/ WHEEZING Comparison: 07/16/2015 Technique: PA and Lateral Findings: Cardiomegaly. Lungs clear. No acute bony abnormality. IMPRESSION: 1. No acute cardiopulmonary findings. Reviewed, dictated and finalized at location R. [employer]
[2025-04-29 11:19] LABS: Hematocrit 49.3 % (37.0-46.0); Hemoglobin 15.3 g/dL (12.4-15.3); Mean Corpuscular HGB Conc 31.0 g/dL (32-36); Mean Corpuscular Hemoglobin 27.0 pg (27.0-31.0); Mean Corpuscular Volume 87.1 fL (78.0-102.0); Platelet Count Result 295 K/mm3 (150-420); Red Blood Count 5.66 M/mm3 (4.70-6.10); White Blood Count 17.4 K/mm3 (4.8-10.8)
[2025-04-29 11:31] LABS: Alanine Aminotransferase 30 U/L (6-50); Albumin Level 4.4 g/dL (3.5-5.1); Alkaline Phosphatase 102 U/L (38-126); Anion Gap 17 mmol/L (4-12); Aspartate Amino Transferase 32 U/L (17-59); Bilirubin,Total 1.3 mg/dL (0.2-1.3); Blood Urea Nitrogen 17 mg/dL (9-20); Calcium 9.4 mg/dL (8.4-10.2); Carbon Dioxide 21 mmol/L (22-30); Chloride 105 mmol/L (98-107); Estimated Glomerular Filt Rate > 60; Glucose 136 mg/dL (65-110); Osmolality Calculated 299 mOsm/kg (285-295); Potassium 4.0 mmol/L (3.4-5.0); Sodium 143 mmol/L (137-145); Total Protein 8.0 g/dL (6.3-8.2)
[2025-04-29 11:56] LABS: RSV RNA, RT-PCR Negative (Negative)
== END 2025-04-29 11:00 | disposition home or self-care (01) ==
LOC: CHSLAB 11:02
PROVIDERS: PCP Internal Medicine; Visit Provider Internal Medicine
DX: R05.9 Cough, unspecified (principal); R06.2 Wheezing
CPT/HCPCS: 36415; 71046; 80053; 85027; 87634